=== PATIENT | male | born 1995 | race Hispanic/Latino ===

== ENCOUNTER 2020-03-11 09:12 | Outpatient (CLI) | payer BC ==
--- NOTE | 2020-03-11 10:10 | RAD ---
Exam: Modified barium swallow HISTORY: Feeding difficulties. Dysphagia, unspecified. FINDINGS: In the presence of a speech pathologist, the patient was administered thin liquid, puree an d solid consistencies. Patient was also administered a 13 mm barium tablet. No evidence of penetration or aspiration. Exposure: 10.8 seconds. 9 milligray. IMPRESSION: Please refer to speech pathologist's report for feeding recommendation.
== END 2020-03-11 09:13 | disposition home or self-care (01) ==
PROVIDERS: ATTEND Physician Assistant
DX: R13.10 Dysphagia, unspecified (principal); R63.3 Feeding difficulties
CPT/HCPCS: 74230

== ENCOUNTER 2020-04-26 09:41 | Outpatient (CLI) | payer BC, OTHER | END 2020-04-26 09:42 | disposition home or self-care (01) | LOC: LABBT 09:41 | PROVIDERS: ATTEND Thoracic Surgery (Cardiothoracic Vascular Surgery) | DX: Z01.812 Encounter for preprocedural laboratory examination (principal); T14.8XXA Other injury of unspecified body region, initial encounter; Z20.822 Contact with and (suspected) exposure to COVID-19 | CPT/HCPCS: 87635; U0003; U0005 ==

== ENCOUNTER → 2020-05-01 | Day surgery (SDC) | payer BC, OTHER ==
[2020-04-30 12:08] VITALS: BMI 23.4
[~2020-05-01] MED LIST: HYDROcodone/Acetaminophen 5/325 mg Tablet ONE; Iopamidol 370 76% 50 ML VIAL FS ONE; Lidocaine 1% (PF) 30 ML VIAL ONE
== END ==
LOC: MERGE 09:30 → SDC 10:01
PROVIDERS: ATTEND Thoracic Surgery (Cardiothoracic Vascular Surgery)
PROC: 06PY3DZ Removal of Intraluminal Device from Lower Vein, Percutaneous Approach (ICD-10-PCS; principal; 2020-05-01)
DX: Z45.89 Encounter for adjustment and management of other implanted devices (principal)
CPT/HCPCS: 37193; 76942; J2001; Q9967

== ENCOUNTER 2020-12-05 10:23 | Outpatient (CLI) | payer BC | END 2020-12-05 10:24 | disposition home or self-care (01) | LOC: CTENTCT 10:23 | PROVIDERS: ATTEND Otolaryngology Plastic Surgery within the Head & Neck | DX: R43.0 Anosmia (principal) | CPT/HCPCS: 70486 ==

== ENCOUNTER 2021-02-03 09:22 | Outpatient (CLI) | payer BC ==
[2021-02-03 22:19] LABS: SARS-CoV-2 PCR by NAA DETECTED (NotDetected)
== END 2021-02-03 09:23 | disposition home or self-care (01) ==
LOC: LABBT 09:22
PROVIDERS: ATTEND Orthopaedic Surgery
DX: U07.1 COVID-19 (principal); Z01.812 Encounter for preprocedural laboratory examination; T85.848A Pain due to other internal prosthetic devices, implants and grafts, initial encounter
CPT/HCPCS: U0003; U0005